=== PATIENT | female | born 1980 | race African-American/Black ===

== ENCOUNTER 2019-05-26 21:02 | Emergency (ER) | payer OTHER ==
[~2019-05-26] VITALS: Ht 160 cm; Wt 62.1 kg
[~2019-05-26 21:02] MED LIST: ACYCLOVIR 200200 MG PO; BACTRIM DS TAB1 EACH PO; CHERATUSSIN DA480 ML PO; CIPROFLOXACIN500 M1 PO; DIFLUCAN150 MG PO; FLAGYL500 MG PO; FLEXERIL PO; IBUPROFEN 600600 M1 PO; IBUPROFEN 800800 M1 PO; KEFLEX500 MG PO; LORTAB 5 MG/5001 TA1 PO; METROGEL-VAGINA70 GM VG; MOBIC15 MG PO; MUCINEX600 MG; NOHOMEMEDICATIONS; NORCO 5-325 TA1 EACH PO; PREDNISONE 20 M20 MG PO; TRAMADOL 50 MG50 MG PO; VALIUM2 MG PO; ZPAK PO
[2019-05-26 21:08] VITALS: BP 167/98
[2019-05-26] MEDS ORDERED: KEFLEX500 M1 PO (21:31)
== END 2019-05-26 21:41 | disposition home or self-care (01) ==
LOC: ER 21:02
DX: B07.9 Viral wart, unspecified (principal); L08.9 Local infection of the skin and subcutaneous tissue, unspecified

== ENCOUNTER 2020-04-09 13:24 | Emergency (ER) | payer OTHER ==
[~2020-04-09] VITALS: Ht 160 cm; Wt 65.3 kg
[~2020-04-09 13:24] MED LIST changes: +KEFLEX500 M1 PO
[2020-04-09] MEDS ORDERED: CYCLOBENZAPRINE5 MG PO (15:03)
[2020-04-09 15:19] VITALS: BP 140/93
== END 2020-04-09 15:16 | disposition home or self-care (01) ==
LOC: ER 13:24
DX: M54.6 Pain in thoracic spine (principal); M54.2 Cervicalgia; M25.511 Pain in right shoulder; M25.521 Pain in right elbow; R20.2 Paresthesia of skin; Z79.2 Long term (current) use of antibiotics; Z79.899 Other long term (current) drug therapy; V89.2XXA Person injured in unspecified motor-vehicle accident, traffic, initial encounter; Y93.89 Activity, other specified; Y92.89 Other specified places as the place of occurrence of the external cause; Y99.8 Other external cause status